=== PATIENT | male | born 1965 | race Two or more races ===

== ENCOUNTER 2023-02-09 08:39 | Emergency (ER) | payer OTHER ==
[~2023-02-09] VITALS: Ht 170.2 cm; Wt 113.4 kg
[2023-02-09] MEDS ORDERED: IRBESARTAN300 MG PO (09:01)
[2023-02-09] MEDS ORDERED: BUPROPION XL300 MG PO (09:01)
[2023-02-09] MEDS ORDERED: LORAZEPAM0.5 MG PO (09:01)
[2023-02-09] MEDS ORDERED: ATORVASTATIN CA20 MG PO (09:01)
[2023-02-09] MEDS ORDERED: LAMICTAL100 MG PO (09:01)
== END 2023-02-09 12:24 | disposition home or self-care (01) ==
LOC: ER 08:39
DX: M79.661 Pain in right lower leg (principal); I10 Essential (primary) hypertension; W06.XXXA Fall from bed, initial encounter; Y93.89 Activity, other specified; Y92.013 Bedroom of single-family (private) house as the place of occurrence of the external cause
CPT/HCPCS: 73560; 96372; 99284; J1885

== ENCOUNTER 2023-12-13 07:00 | Inpatient (IN) | payer OTHER ==
[~2023-12-13 07:00] MED LIST: ATORVASTATIN CA20 MG PO; BUPROPION XL300 MG PO; IRBESARTAN300 MG PO; LAMICTAL100 MG PO; LORAZEPAM0.5 MG PO
[2023-12-13 07:58] LABS: URINE BACTERIA 13.8 uL (0.0-1933); URINE EPITHELIAL CELLS 2.6 uL (0.0-38.8); URINE WBC 3.2 uL (0.0-23.2)
[2023-12-13 08:01] LABS: URINE CAST 0.15 uL (0.0-1.40)
[2023-12-13 08:04] LABS: URINE BILIRRUBIN SMALL (NEGATIVE); URINE BLOOD TRACE; URINE GLUCOSE NEGATIVE (NEGATIVE); URINE KETONE NEGATIVE (NEGATIVE); URINE LEUKOCYTE NEGATIVE; URINE NITRATE NEGATIVE; URINE PROTEIN NEGATIVE (NEGATIVE); URINE UROBILINOGEN 0.2 E.U./dl
[2023-12-13 08:09] LABS: URINE APPEARANCE CLEAR; URINE COLOR YELLOW
[2023-12-13 08:12] LABS: HEMATOCRIT 44.7 % (39.0-48.0); HEMOGLOBIN 15.2 g/dL (13-16.00); MEAN CELL VOLUME 92.6 fL (80.0-100.00); MEAN CORPUSCULAR HEMOGLOBIN 31.5 pg (27.00-32.0); PLATELET COUNT 224 K/uL (150-450); RED BLOOD COUNT 4.82 M/uL (4.00-6.00); RED CELL DISTRIBUTION WIDTH 13.7 % (11.5-14.5)
[2023-12-13 08:29] LABS: INR 1.08; PARTIAL THROMBOPLASTIN TIME 31.3 SECONDS (22.0-34.0); PROTHROMBIN TIME 11.7 SECONDS (9.0-11.5)
[2023-12-13 08:35] LABS: BILIRUBIN TOTAL 0.76 mg/dL (0.3-1.2); CALCIUM 9.3 mg/dL (8.5-10.1); CREATININE SERUM 0.84 mg/dL (0.70-1.30); GFR 93.85; GLOBULINA 3.4 G/DL (2.4-3.5); POTASSIUM 4.24 mEq/L (3.5-5.1); TOTAL PROTEIN 7.4 gm/dL (6.4-8.2)
[2023-12-19] MEDS ORDERED: CEFAZOLIN SODIUM 1,000 MG VIAL ONE (06:59)
[2023-12-19] MEDS ORDERED: TRANEXAMIC ACID 100MG/1ML (1000MG) AMPUL IV ONE (06:59)
[2023-12-19] MEDS ORDERED: BUPIVACAINE HCL 0.5% 50ML VIAL ONE (07:29)
[2023-12-19] MEDS ORDERED: KETOROLAC TROMETHAMINE 60 MG VIAL IM ONE ×2 (07:29→08:30)
[2023-12-19] MEDS ORDERED: VANCOMYCIN HCL 1,000 MG VIAL ONE (07:29)
[2023-12-19] MEDS ORDERED: LIDOCAINE HCL 1%/EPINEPHRINE 20ML VIAL IJ ONE (07:30)
[2023-12-19] MEDS ORDERED: ISOPROPYL ALCOHOL 30 ML OUNCE TOP ONE ×2 (07:46→09:00)
[2023-12-19] MEDS ORDERED: BUPIVACAINE HCL/PF 0.25% 50 ML VIAL IJ ONE (08:30)
[2023-12-19] MEDS ORDERED: LIDOCAINE HCL 1% 20ML VIAL IJ ONE (08:30)
[2023-12-19] MEDS ORDERED: VANCOMYCIN HCL 1,000 MG VIAL IR ONE (08:30)
[2023-12-19] MEDS ORDERED: MORPHINE SULFATE 4 MG/ML VIAL IV ONE ×2 (08:30→11:50)
[2023-12-19] MEDS ORDERED: OxyCODONE HCL/APAP UD (PERCOCET) PO PRN (10:00)
[2023-12-19] MEDS ORDERED: ONDANSETRON HCL 2 MG/ML VIAL IV PRN (10:00)
[2023-12-19] MEDS ORDERED: CEFAZOLIN SODIUM 1,000 MG VIAL IV SCH (12:00)
[2023-12-19] MEDS ORDERED: MORPHINE SULFATE 4 MG/ML CARTRIDGE IV SCH (12:00)
[2023-12-19] MEDS ORDERED: LORazepam 0.5 MG TABLET PO PRN (13:45)
[2023-12-19] MEDS ORDERED: GABAPENTIN 100 MG CAPSULE PO SCH (21:00)
[2023-12-19] MEDS ORDERED: ORPHENADRINE CITRATE 100 MG TABLET PO SCH (21:00)
[2023-12-20 06:52] LABS: HEMATOCRIT 36.5 % (39.0-48.0); HEMOGLOBIN 12.3 g/dL (13-16.00); MEAN CELL VOLUME 92.6 fL (80.0-100.00); MEAN CORPUSCULAR HEMOGLOBIN 31.3 pg (27.00-32.0); MEAN CORPUSCULAR HGB CONC 33.8 g/dl (32.0-36.0); PLATELET COUNT 201 K/uL (150-450); RED BLOOD COUNT 3.94 M/uL (4.00-6.00); RED CELL DISTRIBUTION WIDTH 13.8 % (11.5-14.5)
[2023-12-20] MEDS ORDERED: IRBESARTAN 300 MG TABLET PO SCH (09:00)
[2023-12-20] MEDS ORDERED: ENOXAPARIN SODIUM 30 MG/0.3 ML SYRINGE SUBCUTANEO SCH (09:00)
[2023-12-20] MEDS ORDERED: BUPROPION HCL 150 MG TABLET.SA PO SCH (09:00)
[2023-12-20] MEDS ORDERED: VITAMIN B COMPLEX 1 EACH PO SCH (17:00)
[2023-12-20] MEDS ORDERED: Cyanocobalamin/Mecobalamin 1 TAB.SL SL SCH (17:00)
[2023-12-20] MEDS ORDERED: IRON FUM,PS/FOLIC ACID/VITC/B3 1 CAP CAPSULE PO SCH (17:00)
[2023-12-20] MEDS ORDERED: SOD FERRIC GLUC COMPLX/SUCROSE 62.5 MG/5 ML AMPUL IV SCH (17:00)
[2023-12-21 06:25] LABS: HEMATOCRIT 35.9 % (39.0-48.0); HEMOGLOBIN 12.1 g/dL (13-16.00); MEAN CELL VOLUME 91.3 fL (80.0-100.00); MEAN CORPUSCULAR HEMOGLOBIN 30.8 pg (27.00-32.0); MEAN CORPUSCULAR HGB CONC 33.8 g/dl (32.0-36.0); PLATELET COUNT 182 K/uL (150-450); RED BLOOD COUNT 3.94 M/uL (4.00-6.00); RED CELL DISTRIBUTION WIDTH 13.6 % (11.5-14.5)
[2023-12-21] MEDS ORDERED: OxyCODONE HCL/APAP UD (PERCOCET) PO PRN (13:45)
== END 2023-12-21 14:20 | DRG 470 ==
LOC: O/R 12-19 04:50 → SURH 12-19 07:00 → O/R 12-19 10:44 → SURG 12-19 11:21
PROVIDERS: ADMIT Orthopaedic Surgery; ATTEND Orthopaedic Surgery
PROC: 0SRC0JZ Replacement of Right Knee Joint with Synthetic Substitute, Open Approach (ICD-10-PCS; principal; 2023-12-19 10:00)
DX: M17.11 Unilateral primary osteoarthritis, right knee (principal); D62 Acute posthemorrhagic anemia; I10 Essential (primary) hypertension